=== PATIENT | female | born 1985 | race Caucasian/White ===

== ENCOUNTER → 2017-10-22 | Day surgery (SDC) | payer OTHER ==
[~2017-10-22] VITALS: Ht 160 cm; Wt 56.7 kg
--- NOTE | 2017-10-22 10:49 | Operative Report ---
Operative/Inv Procedure Report Surgery Date: 10/22/17 Name of Procedure: Excision left wrist ganglion Pre-Operative Diagnosis: Ganglion cyst Post-Operative Diagnosis: Same Estimated Blood Loss: scant Surgeon/Adjunct Professor: Bridger Farfan MD Anesthesia: local monitored anesthesi Specimens: Ganglion Operative/Procedure Note Note: After consent she is brought to the abnormally supine. Sedation was obtained and her left hand and wrist were prepped and draped. Skin overlying the dorsal ganglion was after local anesthesia. Incision was made through skin crease. Subcu tissues dissected with cautery. There is a small vein overlying it which was preserved. The cyst was quite large and circumferentially dissected with cautery. We got down to the neck of it and excised it passed off the field. The small sinus was closed with 3-0 Vicryl. Incision then closed in 3 layers of 3-0 and 4-0 Vicryl sutures. Sterile dressings were applied. Anthony wrap was then applied, sponge and needle counts are correct
== END ==
LOC: STS 02:01
DX: M67.432 Ganglion, left wrist (principal)
CPT/HCPCS: 81025; J1885; J2001; J2250